=== PATIENT | male | born 1935 | race Caucasian/White ===

== ENCOUNTER 2024-09-15 12:08 | Outpatient (CLI) | payer MEDICARE, SELFPAY | END 2024-09-15 12:09 | disposition home or self-care (01) | LOC: AMB 09-16 10:08 | PROVIDERS: PCP Internal Medicine; Visit Provider Family Medicine | DX: S89.91XA Unspecified injury of right lower leg, initial encounter (principal); W10.8XXA Fall (on) (from) other stairs and steps, initial encounter; Y93.H2 Activity, gardening and landscaping; Y92.007 Garden or yard of unspecified non-institutional (private) residence as the place of occurrence of the external cause | CPT/HCPCS: A0425; A0433 ==